=== PATIENT | male | born 1985 | race Caucasian/White ===

== ENCOUNTER 2017-02-08 09:14 | Emergency (ER) | payer SELFPAY ==
[~2017-02-08] VITALS: Ht 177.8 cm; Wt 90.0 kg
[~2017-02-08 09:14] MED LIST: ZOFR4TAB3 SL
[2017-02-08 09:18] VITALS: BP 120/81; PULSE 81; RESP 22; TEMP 97.6; O2SAT 98
[2017-02-08] MEDS ORDERED: ONDANSETRON HCL 4 MG/2 ML VIAL ONE (09:44)
[2017-02-08] MEDS ORDERED: SODIUM CHLOR 0.9% 1000 ML INJ 1,000 ML IV SCH (09:44)
[2017-02-08] MEDS ORDERED: SODIUM CHLORIDE 0.9% FLUSH 10 ML FLUSH IV FLUSH PRN (09:45)
[2017-02-08] MEDS ORDERED: ONDANSETRON HCL 4 MG/2 ML VIAL IVP ONE (09:45)
--- NOTE | 2017-02-08 09:52 | PD ---
HPI Chief Complaint: GI Complaint Time Seen by Provider: 09:49 Travel History International Travel<30 days: No Contact w/Intl Traveler<30days: No Traveled to known affect area: No History of Present Illness HPI 31-year-old male with history of previous hiatal hernia status post surgical repair, previous heart surgery as a child, presents to the ER today because of left upper quadrant abdominal pain which he currently states is a 10 out of 10 starting yesterday. He has been nauseous, vomiting, having diarrhea. He denies any fevers or other symptoms. He does not know any alleviating or exacerbating factors. Modifying Factors: None Associated Signs & Symptoms: Nausea, vomiting, diarrhea, left upper quadrant abdominal pain Risk Factors: Previous hiatal hernia surgery PFSH Past Medical History Cardiovascular Problems: Yes (HEART DEFECT CHILD ) Diminished Hearing: No Endocrine: No GERD: Yes Hiatal Hernia: Yes Medical other: Yes (meningitis at 14yrs old) Respiratory: Yes (TB at age 2) Tetanus Vaccination: Unknown Past Surgical History Abdominal Surgery: Yes (TIF PROCEDURE ) Appendectomy: Yes Cardiac Surgery: Yes (ASD REPAIR) Social History Alcohol Use: No Tobacco Use: No Substance Use: Yes ( MARIJUANA) Allergies-Medications (Allergen,Severity, Reaction): Coded Allergies: Penicillin (Verified Allergy, Intermediate, 02/08/17) Amoxicillin (Verified Allergy, Unknown, 02/08/17) Reported Meds & Prescriptions Reported Meds & Active Scripts Active No Active Prescriptions or Reported Medications Review of Systems Except as stated in HPI: all other systems reviewed are Neg Physical Exam Narrative GENERAL: Well-developed young white male patient currently in moderate distress. Awake and oriented 3. SKIN: Focused skin assessment warm/dry. HEAD: Atraumatic. Normocephalic. EYES: Pupils equal and round. No scleral icterus. No injection or drainage. ENT: No nasal bleeding or discharge. Mucous membranes pink and moist. NECK: Trachea midline. No JVD. CARDIOVASCULAR: Regular rate and rhythm. No murmur appreciated. RESPIRATORY: No accessory muscle use. Clear to auscultation. Breath sounds equal bilaterally. GASTROINTESTINAL: Abdomen soft, left upper quadrant tenderness with mild guarding and no rebound, nondistended. Hepatic and splenic margins not palpable. MUSCULOSKELETAL: No obvious deformities. No clubbing. No cyanosis. No edema. NEUROLOGICAL: Awake and alert. No obvious cranial nerve deficits. Motor grossly within normal limits. Normal speech. PSYCHIATRIC: Appropriate mood and affect; insight and judgment normal. Data Data Last Documented VS Vital Signs Date Time Temp Pulse Resp B/P Pulse Ox O2 Delivery O2 Flow Rate FiO2 02/08/17 10:02 97.8 42 17 115/73 98 Room Air Orders Complete Blood Count With Diff (02/08/17 09:44) Comprehensive Metabolic Panel (02/08/17 09:44) Lipase (02/08/17 09:44) Iv Access Insert/Monitor (02/08/17 09:44) Ecg Monitoring (02/08/17 09:44) Oximetry (02/08/17 09:44) Ondansetron Inj (Zofran Inj) (02/08/17 09:45) Sodium Chlor 0.9% 1000 Ml Inj (Ns 1000 M (02/08/17 09:44) Sodium Chloride 0.9% Flush (Ns Flush) (02/08/17 09:45) Ondansetron Inj (Zofran Inj) (02/08/17 09:44) Hydromorphone Pf Inj (Dilaudid Pf Inj) (02/08/17 10:00) Ct Abd/Pel W Iv Contrast(Rout) (02/08/17 09:49) Iohexol 350 Inj (Omnipaque 350 Inj) (02/08/17 11:17) Labs Laboratory Tests Test 02/08/17 09:53 White Blood Count 10.7 TH/MM3 Red Blood Count 4.30 MIL/MM3 Hemoglobin 13.5 GM/DL Hematocrit 39.8 % Mean Corpuscular Volume 92.5 FL Mean Corpuscular Hemoglobin 31.4 PG Mean Corpuscular Hemoglobin 33.9 % Concent Red Cell Distribution Width 14.9 % Platelet Count 206 TH/MM3 Mean Platelet Volume 9.3 FL Neutrophils (%) (Auto) 59.8 % Lymphocytes (%) (Auto) 27.3 % Monocytes (%) (Auto) 9.0 % Eosinophils (%) (Auto) 2.9 % Basophils (%) (Auto) 1.0 % Neutrophils # (Auto) 6.4 TH/MM3 Lymphocytes # (Auto) 2.9 TH/MM3 Monocytes # (Auto) 1.0 TH/MM3 Eosinophils # (Auto) 0.3 TH/MM3 Basophils # (Auto) 0.1 TH/MM3 CBC Comment DIFF FINAL Differential Comment Sodium Level 139 MEQ/L Potassium Level 5.0 MEQ/L Chloride Level 108 MEQ/L Carbon Dioxide Level 28.0 MEQ/L Anion Gap 3 MEQ/L Blood Urea Nitrogen 25 MG/DL Creatinine 1.17 MG/DL Estimat Glomerular Filtration 73 ML/MIN Rate Random Glucose 100 MG/DL Calcium Level 8.8 MG/DL Total Bilirubin 0.3 MG/DL Aspartate Amino Transf 27 U/L (AST/SGOT) Alanine Aminotransferase 27 U/L (ALT/SGPT) Alkaline Phosphatase 81 U/L Total Protein 7.1 GM/DL Albumin 3.8 GM/DL Lipase 177 U/L MDM Medical Decision Making Medical Screen Exam Complete: Yes Emergency Medical Condition: Yes Medical Record Reviewed: Yes Interpretation(s) Laboratory Tests Test 02/08/17 09:53 Red Blood Count 4.30 MIL/MM3 (4.50-5.90) Monocytes (%) (Auto) 9.0 % (0.0-8.0) Monocytes # (Auto) 1.0 TH/MM3 (0-0.9) Chloride Level 108 MEQ/L (98-107) Anion Gap 3 MEQ/L (5-15) Blood Urea Nitrogen 25 MG/DL (7-18) Estimat Glomerular Filtration 73 ML/MIN (>89) Rate Last 24 hours Impressions Abdomen/Pelvis CT 02/08/17 0949 Signed Impressions: Service Date/Time: Thursday, February 08, 2017 11:04 - CONCLUSION: Minimal diverticuli sigmoid colon without diverticulitis. Patrick De Jesus MD FACR Differential Diagnosis Left upper quadrant abdominal pain, nausea, vomiting, diarrheagastroenteritis versus gastritis versus pancreatitis versus hiatal hernia Narrative Course Patient was given IV fluids, pain medications and nausea medications. Lab work and CAT scan did not indicate significant acute issues. At this point, with the nausea, vomiting, diarrhea, symptoms may represent an underlying gastroenteritis. At this point, my plan would be to release him with follow-up to primary care physician and symptomatic relief for the discomfort and vomiting. Return for any worsening in symptoms as needed. The plan has discussed with him and he states understanding. Diagnosis Primary Impression: Abdominal pain Med/Other Pt SpecificInfo: Prescription(s) given Scripts Ondansetron Odt (Zofran Odt)4 Mg Tab4 Mg SL Q6HR PRN (Nausea/Vomiting) #7 TAB Ref 0 Prov:Olga Bryan MD 02/08/17 Dicyclomine (Bentyl)10 Mg Cap10 Mg PO TID PRN (Bowel Management) #20 CAP Ref 0 Prov:Olga Bryan MD 02/08/17 Disposition: 01 DISCHARGE HOME Condition: Stable Olga Bryan MD Feb 08, 2017 09:52
[2017-02-08] MEDS ORDERED: HYDROmorphone HCL PF 1 MG/ML VIAL IV PUSH ONE (10:00)
[2017-02-08 10:01] VITALS: O2SAT 98
[2017-02-08 10:02] VITALS: BP 115/73; PULSE 42; RESP 17; TEMP 97.8; O2SAT 98
[2017-02-08 10:03] LABS: AUTOMATED NEUTROPHIL # 6.4 TH/MM3 (1.8-7.7); BASOPHIL # 0.1 TH/MM3 (0-0.2); EOSINOPHIL # 0.3 TH/MM3 (0-0.4); EOSINOPHIL % 2.9 % (0.0-4.0); HEMATOCRIT 39.8 % (39.0-51.0); HEMO FLAGS DIFF FINAL; LYMPH % 27.3 % (9.0-44.0); LYMPHOCYTE # 2.9 TH/MM3 (1.0-4.8); MEAN CELL VOLUME 92.5 FL (80.0-100.0); MEAN CORPUSCULAR HEMOGLOBIN 31.4 PG (27.0-34.0); MEAN CORPUSCULAR HGB CONC 33.9 % (32.0-36.0); NEUT % 59.8 % (16.0-70.0); PLATELET COUNT 206 TH/MM3 (150-450); RED CELL DISTRIBUTION WIDTH 14.9 % (11.6-17.2); WHITE BLOOD COUNT 10.7 TH/MM3 (4.0-11.0)
[2017-02-08 10:28] LABS: ALKALINE PHOSPHATASE 81 U/L (45-117); ALT (GPT) 27 U/L (12-78); ANION GAP 3 MEQ/L (5-15); AST (GOT) 27 U/L (15-37); BLOOD UREA NITROGEN 25 MG/DL (7-18); CHLORIDE 108 MEQ/L (98-107); GLOMERULAR FILTRATION RATE 73 ML/MIN (>89); SODIUM (NA) 139 MEQ/L (136-145); TOTAL BILIRUBIN ADULT 0.3 MG/DL (0.2-1.0)
[2017-02-08] MEDS ORDERED: IOHEXOL 350 MG/ML 10 ML VIAL (for RAD DIAG) IV ONE (11:17)
--- NOTE | 2017-02-08 11:31 | RADRPT ---
EXAM DATE/TIME: 02/08/2017 11:04 [facility] COMPARISON: CT ABDOMEN & PELVIS W CONTRAST, May 26, 2016, 9:09. INDICATIONS : Left abdomen pain for two days. IV CONTRAST: 97 cc Omnipaque 350 (iohexol) IV ORAL CONTRAST: No oral contrast ingested. RADIATION DOSE: 9.96 CTDIvol (mGy) MEDICAL HISTORY : Cardiovascular disease. Hernia, hiatal. SURGICAL HISTORY : hiatal hernia surgery ENCOUNTER: Initial ACUITY: 1 day PAIN SCALE: 10/10 LOCATION: Left abdomen. TECHNIQUE: Volumetric scanning of the abdomen and pelvis was performed. Using automated exposure control and ad justment of the mA and/or kV according to patient size, radiation dose was kept as low as reasonably achievable to obtain optimal diagnostic quality images. FINDINGS: LOWER LUNGS: The visualized lower lungs are clear. LIVER: Homogeneous density without lesion. There is no dilation of the biliary tree. No calcified gallston es. SPLEEN: Normal size without lesion. PANCREAS: Within normal limits. KIDNEYS: Normal in size and shape. There is no mass, stone or hydronephrosis. ADRENAL GLANDS: Within normal limits. VASCULAR: There is no aortic aneurysm. BOWEL/MESENTERY: The stomach, small bowel, and colon demonstrate no acute abnormality. There is no free intraperitone al air or fluid. Minimal diverticuli are noted. ABDOMINAL WALL: Within normal limits. RETROPERITONEUM: There is no lymphadenopathy. BLADDER: No wall thickening or mass. REPRODUCTIVE: Within normal limits. INGUINAL: There is no lymphadenopathy or hernia. MUSCULOSKELETAL: Within normal limits for patient age. CONCLUSION: Minimal diverticuli sigmoid colon without diverticulitis. Patrick De Jesus MD FACR on February 08, 2017 at 11:28 Board Certified Radiologist. This report was verified electronically.
[2017-02-08] MEDS ORDERED: ZOFR4TAB3 SL (11:45)
[2017-02-08] MEDS ORDERED: DICY10 PO (11:45)
[2017-02-08 12:25] VITALS: PULSE 52
[2017-02-08] MEDS ORDERED: ONDANSETRON HCL 4 MG/2 ML VIAL IV PUSH ONE (12:30)
== END 2017-02-08 12:38 | disposition home or self-care (01) ==
LOC: NEPC 09:14
DX: R10.12 Left upper quadrant pain (principal); R11.2 Nausea with vomiting, unspecified; R19.7 Diarrhea, unspecified; Z98.890 Other specified postprocedural states; Z87.19 Personal history of other diseases of the digestive system
CPT/HCPCS: 74177; 80053; 83690; 85025; 96361; 96374; 96375; 96376; 99285; J1170; J2405; J7030; Q9967

== ENCOUNTER 2017-02-23 09:05 | Emergency (ER) | payer SELFPAY ==
[~2017-02-23] VITALS: Ht 177.8 cm; Wt 88.0 kg
[~2017-02-23 09:05] MED LIST changes: +DICY10 PO
[2017-02-23 09:07] VITALS: BP 122/60; PULSE 64; RESP 20; TEMP 97.5; O2SAT 97
[2017-02-23] MEDS ORDERED: SODIUM CHLOR 0.9% 1000 ML INJ 1,000 ML IV SCH (09:31)
--- NOTE | 2017-02-23 09:39 | PD ---
HPI Chief Complaint: GI Complaint Time Seen by Provider: 09:21 Travel History International Travel<30 days: No Contact w/Intl Traveler<30days: No Traveled to known affect area: No History of Present Illness HPI Patient is a 31-year-old male presents emergency Department with complaint of abdominal pain. Patient seen here on 02/08 with complaints of abdominal pain nearly epigastric radiating throughout the abdomen with nausea vomiting diarrhea. Looking back, he has had several visits in the emergency department for this. He states that his symptoms are always worse earlier in the day, morning and early afternoon. It is somewhat burning in nature, but also crampy. The nausea and vomiting is certainly worse than the diarrhea, and generally speaking with 10 episodes of emesis for every one episode of loose stool. He has never had any hematemesis or hematochezia. Patient does admit that a warm shower helps and when questioned about his marijuana abuse states that he "doesn't smoke that much". However patient clarifies that further after my initial questioning that he actually does smoke daily in the late morning or early afternoon which seems to help his symptoms above. He has had previous laboratory testing, CT scan imaging 3 in our system in the last year that have been negative. Has a side note patient notes that his ex-girlfriend called him and stated that she was diagnosed with Trichomonas and patient has been having 3 weeks of dysuria. PFSH Past Medical History Cardiovascular Problems: Yes (HEART REPAIR) Diminished Hearing: No Endocrine: No GERD: Yes Hiatal Hernia: Yes Respiratory: Yes (TB at age 2) Tetanus Vaccination: Unknown Influenza Vaccination: No Past Surgical History Abdominal Surgery: Yes (TIF PROCEDURE ) Appendectomy: Yes Cardiac Surgery: Yes (ASD REPAIR) Social History Alcohol Use: Yes (RARELY) Tobacco Use: Yes (WHEN DRINKING) Substance Use: Yes ( MARIJUANA-DENIES) Allergies-Medications (Allergen,Severity, Reaction): Coded Allergies: Penicillin (Verified Allergy, Intermediate, 02/23/17) Amoxicillin (Verified Allergy, Unknown, 02/23/17) Reported Meds & Prescriptions Reported Meds & Active Scripts Active Phenergan (Promethazine HCl) 25 Mg Tablet 25 Mg PO Q6H PRN Bentyl (Dicyclomine HCl) 10 Mg Cap 10 Mg PO TID PRN Flagyl (Metronidazole) 500 Mg Tab 500 Mg PO TID 7 Days Zofran Odt (Ondansetron Odt) 4 Mg Tab 4 Mg SL Q6HR PRN Bentyl (Dicyclomine HCl) 10 Mg Cap 10 Mg PO TID PRN Review of Systems Except as stated in HPI: all other systems reviewed are Neg Physical Exam Narrative GENERAL: Well Appearing male in no acute distress SKIN: Focused skin assessment warm/dry. HEAD: Normocephalic. EYES: No scleral icterus. No injection or drainage. ENT: Mucous membranes pink and moist. NECK: Supple CARDIOVASCULAR: Regular rate and rhythm. RESPIRATORY: No accessory muscle use. GASTROINTESTINAL: Abdomen soft, mild epigastric and periumbilical tenderness to palpation without rebound or guarding MUSCULOSKELETAL: Normal gait NEUROLOGICAL: Awake and alert. Normal speech. PSYCHIATRIC: Appropriate mood and affect; insight and judgment normal. Data Data Last Documented VS Vital Signs Date Time Temp Pulse Resp B/P Pulse Ox O2 Delivery O2 Flow Rate FiO2 02/23/17 10:58 52 16 112/56 97 Room Air 02/23/17 09:07 97.5 Orders Iv Access Insert/Monitor (02/23/17 09:31) Oximetry (02/23/17 09:31) Morphine Inj (Morphine Inj) (02/23/17 09:45) Ondansetron Inj (Zofran Inj) (02/23/17 09:45) Pantoprazole Inj (Protonix Inj) (02/23/17 09:45) Sodium Chlor 0.9% 1000 Ml Inj (Ns 1000 M (02/23/17 09:31) Sodium Chloride 0.9% Flush (Ns Flush) (02/23/17 09:45) Ketorolac Inj (Toradol Inj) (02/23/17 09:45) Urinalysis - C+S If Indicated (02/23/17 09:31) Gc And Chlamydia Pcr (02/23/17 09:31) Diphenhydramine Inj (Benadryl Inj) (02/23/17 10:45) Metoclopramide Inj (Reglan Inj) (02/23/17 10:45) Labs Laboratory Tests Test 02/23/17 09:35 Urine Color YELLOW Urine Turbidity CLEAR Urine pH 6.0 Urine Specific Mcgregor 1.028 Urine Protein TRACE mg/dL Urine Glucose (UA) NEG mg/dL Urine Ketones NEG mg/dL Urine Occult Blood NEG Urine Nitrite NEG Urine Bilirubin NEG Urine Urobilinogen 2.0 MG/DL Urine Leukocyte Esterase NEG Urine RBC 2 /hpf Urine WBC 1 /hpf Urine Squamous Epithelial <1 /hpf Cells Urine Mucus FEW /lpf Microscopic Urinalysis Comment CULT NOT INDICATED MDM Medical Decision Making Medical Screen Exam Complete: Yes Emergency Medical Condition: Yes Medical Record Reviewed: Yes Differential Diagnosis 31-year-old male with daily cannabis use here with cyclic episodes of epigastric and periumbilical abdominal pain right merrily in the morning and early afternoon's, nausea or vomiting and rarely diarrhea improves with warm shower over the course of the last year. Symptoms and history are highly suspicious for cannabis hyperemesis syndrome, cyclic vomiting syndrome, GERD. His abdominal examination is benign and with 3 CT scans of the abdomen and pelvis and laboratory testing in the last year my suspicion for peritoneal pathology is exceedingly low. Narrative Course Patient placed on monitor, IV established. Given 1 L normal saline bolus, 4 mg morphine, 4 mg Zofran, IV PPI. Urinalysis unremarkable. GC and Chlamydia sent. Patient felt improved but unfortunately was not able to tolerate oral challenge. He was given 50 mg Benadryl, 10 mg Reglan. Patient felt improved after his second round of treatment and will be discharged home. Diagnosis Primary Impression: Cannabinoid hyperemesis syndrome Referrals: [facility] as needed [facility] as needed Additional Instructions: Flagyl as prescribed for Trichomonas exposure. Follow-up with health Department for full STD testing, if desired. Significantly cut back on marijuana usage as discussed, if not quit entirely. Phenergan as needed for nausea, vomiting. Bentyl as needed for abdominal cramping. Follow-up with [facility] as needed for primary care. Med/Other Pt SpecificInfo: Prescription(s) given Scripts Promethazine (Phenergan)25 Mg [id number] Mg PO Q6H PRN (NAUSEA OR VOMITING) #10 TAB Ref 0 Prov:Tiny Arriaza MD 02/23/17 Dicyclomine (Bentyl)10 Mg Cap10 Mg PO TID PRN (Bowel Management) #20 CAP Ref 0 Prov:Tiny Arriaza MD 02/23/17 Metronidazole (Flagyl)500 Mg [id number] Mg PO TID 7 Days Ref 0 Prov:Tiny Arriaza MD 02/23/17 Disposition: 01 DISCHARGE HOME Condition: Stable Tiny Arriaza MD Feb 23, 2017 09:38 Tiny Arriaza MD Feb 23, 2017 09:38
[2017-02-23] MEDS ORDERED: KETOROLAC TROMETHAMINE 30 MG/ML (IVP) VIAL IVP ONE (09:45)
[2017-02-23] MEDS ORDERED: ONDANSETRON HCL 4 MG/2 ML VIAL IVP ONE (09:45)
[2017-02-23] MEDS ORDERED: SODIUM CHLORIDE 0.9% FLUSH 10 ML FLUSH IV FLUSH PRN (09:45)
[2017-02-23] MEDS ORDERED: PANTOPRAZOLE SODIUM 40 MG VIAL IVP ONE (09:45)
[2017-02-23] MEDS ORDERED: MORPHINE SULFATE 4 MG/ML INJ IV PUSH ONE (09:45)
[2017-02-23] MEDS ORDERED: DICY10 PO (09:46)
[2017-02-23] MEDS ORDERED: PROM25TA10 PO (09:46)
[2017-02-23] MEDS ORDERED: METR-1 PO (09:46)
[2017-02-23 09:59] VITALS: O2SAT 98
[2017-02-23 10:05] LABS: BLOOD, URINE NEG (NEG); COMMENT (UR) CULT NOT INDICATED; CULTURE IF INDICATED CULT NOT INDICATED; GLUCOSE,URINE NEG (NEG); KETONE, URINE NEG (NEG); MUCUS URINE FEW /lpf (OCC); NITRITE,URINE NEG (NEG); SQUAMOUS EPITHELIAL CELL URINE <1 /hpf (0-5); URINE COLOR YELLOW (YELLW/STRAW)
[2017-02-23] MEDS ORDERED: diphenhydrAMINE HCL 50 MG/ML VIAL IVP ONE (10:45)
[2017-02-23] MEDS ORDERED: METOCLOPRAMIDE HCL 10 MG/2 ML VIAL IVP ONE (10:45)
[2017-02-23 10:58] VITALS: BP 112/56; PULSE 52; RESP 16; O2SAT 97
[2017-02-23 14:10] LABS: CHLAMYDIA PCR DETECTED (NOT DETECT); NEISSERIA PCR NOT DETECTED (NOT DETECT)
== END 2017-02-23 12:08 | disposition home or self-care (01) ==
LOC: NEPD 09:05
DX: F12.929 Cannabis use, unspecified with intoxication, unspecified (principal); R19.7 Diarrhea, unspecified; R11.2 Nausea with vomiting, unspecified; R10.13 Epigastric pain; R10.33 Periumbilical pain; K21.9 Gastro-esophageal reflux disease without esophagitis; Z79.899 Other long term (current) drug therapy
CPT/HCPCS: 81001; 87491; 87591; 96374; 96375; 99284; C9113; J1200; J1885; J2270; J2405; J2765; J7030